=== PATIENT | male | born 1990 | race Caucasian/White ===

== ENCOUNTER 2018-05-23 14:21 | Emergency (ER) | payer OTHER ==
[~2018-05-23] VITALS: Ht 185.4 cm; Wt 99.8 kg
[2018-05-23] MEDS ORDERED: INDOMETHACIN50 MG PO (15:44)
== END 2018-05-23 16:14 | disposition home or self-care (01) ==
LOC: ED 14:21
DX: S62.336A Displaced fracture of neck of fifth metacarpal bone, right hand, initial encounter for closed fracture (principal); W22.8XXA Striking against or struck by other objects, initial encounter
CPT/HCPCS: 29125; 73130; 99283-25